=== PATIENT | female | born 1970 | race Two or more races ===

== ENCOUNTER 2018-02-26 12:17 | Outpatient (CLI) | payer OTHER | END 2018-02-26 17:00 | disposition home or self-care (01) | LOC: MRI 12:17 | DX: M54.5 Low back pain (principal) | CPT/HCPCS: 72149 ==

== ENCOUNTER 2018-03-27 12:24 | Outpatient (CLI) | payer OTHER | END 2018-03-27 12:40 | disposition home or self-care (01) | LOC: SONOGRAMA 12:24 | DX: N60.11 Diffuse cystic mastopathy of right breast (principal); N60.12 Diffuse cystic mastopathy of left breast; R87.610 Atypical squamous cells of undetermined significance on cytologic smear of cervix (ASC-US); N83.12 Corpus luteum cyst of left ovary; D25.1 Intramural leiomyoma of uterus; N76.2 Acute vulvitis; N83.291 Other ovarian cyst, right side; N83.292 Other ovarian cyst, left side; N83.9 Noninflammatory disorder of ovary, fallopian tube and broad ligament, unspecified ==

== ENCOUNTER 2018-08-07 16:56 | Outpatient (CLI) | payer OTHER | END 2018-08-07 17:00 | disposition home or self-care (01) | LOC: LAB 16:56 | DX: A37.90 Whooping cough, unspecified species without pneumonia (principal); A49.1 Streptococcal infection, unspecified site; J44.1 Chronic obstructive pulmonary disease with (acute) exacerbation ==

== ENCOUNTER 2018-08-10 10:27 | Outpatient (CLI) | payer OTHER | END 2018-08-10 19:51 | disposition home or self-care (01) | LOC: LAB 10:27 | DX: A37.90 Whooping cough, unspecified species without pneumonia (principal); A49.1 Streptococcal infection, unspecified site ==

== ENCOUNTER 2024-04-01 12:46 | Outpatient (CLI) | payer OTHER ==
[~2024-04-01 12:46] MED LIST: ACIPHEX20 MG PO; CARAFATE1 GM PO; DEXILANT60 MG; LYSTEDA650 MG PO; MOTILIUM; MUCINEX600 MG PO; PEPCID AC20 MG PO; PREVACID30 MG PO; PROTONIX40 M1 PO; PROTONIX40 MG; PROTONIX40 MG PO; ZANTAC150 M3; ZOFRA; ZOFRAN8 MG PO
== END 2024-04-01 12:47 | disposition home or self-care (01) ==
LOC: MAMO-SONO 12:46
PROVIDERS: ATTEND Obstetrics & Gynecology
DX: N63.21 Unspecified lump in the left breast, upper outer quadrant (principal); N63.12 Unspecified lump in the right breast, upper inner quadrant

== ENCOUNTER 2025-04-15 13:55 | Outpatient (CLI) | payer OTHER | END 2025-04-15 14:11 | disposition home or self-care (01) | LOC: SONOGRAMA 13:55 | DX: Z01.419 Encounter for gynecological examination (general) (routine) without abnormal findings (principal) ==